=== PATIENT | male | born 1990 | race Caucasian/White ===

== ENCOUNTER 2021-07-01 21:50 | Emergency (ER) | payer SELFPAY ==
[~2021-07-01] VITALS: Ht 175.3 cm; Wt 99.8 kg
== END 2021-07-02 00:16 | disposition home or self-care (01) ==
LOC: ED 21:50
DX: F10.129 Alcohol abuse with intoxication, unspecified (principal); Y90.8 Blood alcohol level of 240 mg/100 ml or more
CPT/HCPCS: 80053; 85025; 96374; 99284-25; G0480; J2405; J7030